=== PATIENT | female | born 1995 | race Caucasian/White ===

== ENCOUNTER 2017-04-03 19:21 | Emergency (ER) | payer OTHER ==
--- NOTE | 2017-04-03 19:52 | RADIOLOGY REPORT ---
HISTORY: Fall, wrist pain. COMPARISON: None. FINDINGS: Three views of the wrist obtained. There is no fracture. There is no lytic or sclerotic lesion. Th ere is no scapholunate dislocation. There is normal mineralization and alignment. IMPRESSION: Unremarkable wrist x-ray. Final Electronic Signature: This report was electronically signed by Ortega Reynolds MD, FACR on 2016 7:50 PM. [email or web address] /
--- NOTE | 2017-04-03 20:15 | ER PHYSICIAN DOCUMENTATION ---
Physician Documentation [facility] Name:Julia David Age:22 yrs Sex:Female :1995 Arrival Date:04/03/2017 Time:19:21 Bed6 Private MD: Brandon Renae Disposition: 04/03/17 20:07 Discharged to Home/Self Care. Impression: Wrist Sprain - : Acute, right. - Condition is Good. - Discharge Instructions: WRIST SPRAIN, WRIST SPLINT, Velcro. - Medical Reconciliation form form. - Follow up: Private Physician; When: 7 - 10 days; Reason: Recheck today's complaints, Continuance of care. - Problem is new. - Symptoms have improved. HPI: 04/03 19:25 This 22 yrs old Female presents to ER via Private Vehicle with complaints of cd Wrist Injury - right. 19:25 The patient or guardian reports decreased range of motion, injury, swelling, cd tenderness. The complaints affect the right wrist diffusely. Context: The problem was sustained outdoors, resulted from a fall, on an outstretched hand. Onset: The symptom(s)/episode began/occurred acutely, today. Modifying factors: The symptoms are alleviated by holding still, the symptoms are aggravated by movement. Associated signs and symptoms: The patient has no apparent associated signs or symptoms. The patient has not experienced similar symptoms in the past. Historical: - Allergies: No known drug Allergies; - Home Meds: 1. None - PMHx: None; - PSHx: None; - Ebola Screening: : Patient negative for fever greater than or equal to 101.5 degrees Fahrenheit, and additional compatible Ebola Virus Disease symptoms. Patient denies exposure to infectious person. Patient denies travel to an Ebola-affected area in the 21 days before illness onset. No symptoms or risks identified at this time. . - Immunization history: Flu Vaccine >1 year. - Social history: Smoking status: Patient states was never smoker of tobacco. Patient/guardian denies using alcohol, street drugs, IV drugs, marijuana. ROS: 19:30 MS/extremity: Positive for injury or acute deformity, decreased range of motion, cd swelling, tenderness, of the right wrist, Negative for deformity. 19:30 All other systems are negative. Exam: 19:30 Hand exam: Exam is positive for bony tenderness, decreased range of motion, swelling, cd tenderness, ROM: limited active range of motion due to pain, Circulation is intact in all extremities. sensation intact. Compartment Syndrome exam of affected extremity: is normal. 19:30 Skin: Exam negative for acute changes. 19:30 Constitutional: The patient appears alert, awake, anxious, in obvious distress, moderately distressed. Vital Signs: 19:29 BP 120 / 67; Pulse 77; Resp 16; Temp 98.2; Pulse Ox 95% on R/A; sc1 MDM: 19:27 Patient medically screened. cd 20:05 Data reviewed: vital signs, nurses notes, old medical records, radiologic studies, and cd as a result, I will discharge patient. Data interpreted: Pulse oximetry: on room air is 95 %. Interpretation: normal. 20:10 Counseling: I had a detailed discussion with the patient and/or guardian regarding: the cd historical points, exam findings, and any diagnostic results supporting the discharge/admit diagnosis, radiology results, the need for outpatient follow up, for a recheck, with the patient's primary care provider, to return to the emergency department if symptoms worsen or persist or if there are any questions or concerns that arise at home. Response to treatment: the patient's symptoms have markedly improved after treatment, the patient's condition has returned to base line, and as a result, I will discharge patient. 04/03 19:56 Order name: WRIST; [place] [id number]; Complete Time: 08:35 EDMS 04/05 08:35 Interpretation: Normal. cd 04/03 19:27 Order name: Ice Packs; Complete Time: 19:31 cd Dispensed Medications: No medications were administered Signatures: India Rowland, DENIZ RN sc1 Brandon Brito MD MD cd
--- NOTE | 2017-04-03 20:15 | ER NURSING DOCUMENTATION ---
Nurse's Notes [facility] Name:Julia David Age:22 yrs Sex:Female :1995 Arrival Date:04/03/2017 Time:19:21 Bed6 Private MD: Diagnosis:Wrist Sprain-: Acute, right Presentation: 04/03 19:27 Presenting complaint: Patient states: fell injuring right wrist [employer]. Transition of oh1 care: patient was not received from another setting of care. 19:27 Method Of Arrival: Private Vehicle oh1 19:27 Acuity: ED 3 sc1 Triage Assessment: 19:29 General: Appears in no apparent distress, well developed, well nourished, well groomed, sc1 Behavior is cooperative, pleasant. Pain: Complains of pain in right wrist. Musculoskeletal: Circulation, motion, and sensation intact Capillary refill < 3 seconds. Historical: - Allergies: No known drug Allergies; - Home Meds: 1. None - PMHx: None; - PSHx: None; - Ebola Screening: : Patient negative for fever greater than or equal to 101.5 degrees Fahrenheit, and additional compatible Ebola Virus Disease symptoms. Patient denies exposure to infectious person. Patient denies travel to an Ebola-affected area in the 21 days before illness onset. No symptoms or risks identified at this time. . - Immunization history: Flu Vaccine >1 year. - Social history: Smoking status: Patient states was never smoker of tobacco. Patient/guardian denies using alcohol, street drugs, IV drugs, marijuana. Screenin:30 Infectious Disease Risk None. Abuse screen: Denies threats or abuse. Nutritional sc1 screening: No deficits noted. Vital Signs: 19:29 BP 120 / 67; Pulse 77; Resp 16; Temp 98.2; Pulse Ox 95% on R/A; oh1 ED Course: 19:22 Patient arrived in ED. ma1 19:26 India Rowland, RN is Primary Nurse. sc1 19:27 Brandon Brito MD is Attending Physician. cd 19:28 Triage completed. oh1 19:30 Notified ED Physician of patient's arrival and chief complaint. Dr. Brito notified. Arm oh1 band placed on Bed in low position Call Light in Reach. X-ray ordered. Affected limb iced. Affected limb elevated. 19:36 Port Xray Completed. mannie 20:13 Velcro wrist splint applied to right wrist. sc1 Administered Medications: No medications were administered Outcome: 20:07 Discharge ordered by . tej 20:14 Discharged to home ambulatory. oh1 20:14 Condition: improved 20:14 Discharge instructions given to patient, Instructed on discharge instructions, follow up and referral plans. Demonstrated understanding of instructions. 20:15 Patient left the ED. oh1 04/04 14:42 Discharge F/U Call: Unable to reach: left message with person person taking message: st was told that if she had any questions to give us a call. Signatures: Kerry Handley, RN RN India Palacio RN RN sc1 Brandon Brito MD MD cd Abbott, Danielle Keller
== END 2017-04-03 20:15 | disposition home or self-care (01) ==
LOC: ER 19:21
DX: S63.501A Unspecified sprain of right wrist, initial encounter (principal); W18.39XA Other fall on same level, initial encounter; Y92.89 Other specified places as the place of occurrence of the external cause; Y93.01 Activity, walking, marching and hiking
CPT/HCPCS: 29125; 99283